=== PATIENT | male | born 1975 | race Caucasian/White ===

== ENCOUNTER → 2017-07-23 | Outpatient (CLI) | payer BC ==
[~2017-07-23] MED LIST: GADAVIST IV PRN
--- NOTE | 2017-07-23 19:55 | DIAGNOSTIC IMAGING REPORT ---
MRI THE BRAIN AND PITUITARY, WITHOUT A WITH GADOLINIUM. CLINICAL HISTORY: Hypoprolactinemia. Hypogonadism. COMPARISON STUDY: 01/25/2015 FINDINGS: Imaging was performed in the sagittal axial and coronal planes. Dynamic imaging through the pituitary was performed. The patient was administered 9 cc of intravenous Gadavist. Axial diffusion-weighted images reveal no evidence of acute or subacute infarction. There is no evidence of ventricular dilatation. Proton density T2-weighted and FLAIR images reveal a 2 mm focus of increased FLAIR signal within the left posterior frontal white matter. No optic chiasm lesions are visualized. The infundibulum is within the midline. There is a focus of diminished enhancement within the pituitary occupying most of the gland. This measures 11.5 mm. 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 There are no pathologically enhancing masses. 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 Electronically signed by: Arsalan Bird M.D. 07/23/2017 7:54 PM Dictated Date/Time: 07/23/2017 7:48 PM
== END | disposition home or self-care (01) ==
LOC: C.MRI 18:28
PROVIDERS: ATTEND Internal Medicine Endocrinology, Diabetes & Metabolism
DX: E03.8 Other specified hypothyroidism (principal); E22.1 Hyperprolactinemia; E23.0 Hypopituitarism

== ENCOUNTER → 2017-11-04 | Outpatient (CLI) | payer BC | END | disposition home or self-care (01) | LOC: C.LAB1850 10:22 | PROVIDERS: ATTEND Internal Medicine Endocrinology, Diabetes & Metabolism | DX: E03.8 Other specified hypothyroidism (principal) ==